=== PATIENT | female | born 1990 | race Two or more races ===

== ENCOUNTER 2024-02-26 08:41 | Outpatient (CLI) | payer BC, SELFPAY ==
--- NOTE | ~2024-02-26 | XR_ITS ---
Right Shoulder Technique: AP and axillary views were obtained. Clinical History: Pain Findings: No fracture or dislocation is seen. Osseous alignment is anatomic. The glenohumeral and acr omioclavicular joint spaces are preserved. Suspected small area of calcification at the rotator cuff, suspicious for calcific tendinitis. Impression: Suspected calcific tendinitis at the supraspinatus tendon region. Reviewed, dictated and finalized at location . Impression: Suspected calcific tendinitis at the supraspinatus tendon region.
== END 2024-02-26 08:42 | disposition home or self-care (01) ==
DX: M25.511 Pain in right shoulder (principal)
CPT/HCPCS: 73030